=== PATIENT | male | born 1965 | race Caucasian/White ===

== ENCOUNTER → 2019-03-25 | Outpatient (CLI) | payer BC, MEDICARE ==
--- NOTE | 2019-03-25 09:17 | CT ---
EXAMINATION TYPE: CT brain wo/w con DATE OF EXAM: 03/25/2019 COMPARISON: 05/10/2015 HISTORY: 53-year-old male aneurysm. 364.10, G43.00, 345.90 TECHNIQUE: Examination was done in axial plane without intravenous contrast. Coronal and sagittal r econstructions performed. CT DLP: 2059.8 mGycm Automated exposure control for dose reduction was used. FINDINGS: Metal clip artifact along the left paramedian suprasellar region limits visualization of structures i n the immediate vicinity. There is evidence adjacent encephalomalacia along the floor of the left fro ntal lobe. Left frontotemporal craniotomy flap and eric hole along the right frontal region. Allowing for metal artifact, there is no evidence of acute intracranial hemorrhage, acute ischemic c hanges, mass, mass-effect, or extra-axial fluid collection. There is no effacement of cerebral sulci or basal subarachnoid cisterns. There is no hydrocephalus. There is no midline shift. Mcknight-white matter distinction is preserved. No enhancing intracranial lesions. Dural venous sinuses are patent. Along the visualized portions, no discrete aneurysm is seen. The suprasellar region is not well assessed due to artifact. Rightward nasal septal deviation. Trace mucosal thickening ethmoid air cells. Mastoid air is pneumati zed. Orbits and globes are intact. IMPRESSION: No acute intracranial abnormality seen. Prior left frontotemporal craniotomy flap with underlying ane urysm clipping in the left suprasellar region. Clip artifact limits the evaluation. Consider conventi onal angiography if concern for residual or recurrent [place] of [place] aneurysm.
== END ==
LOC: RADCTMAIN 07:16
PROVIDERS: ATTEND Nurse Practitioner Adult Health
DX: I73.9 Peripheral vascular disease, unspecified (principal); I69.359 Hemiplegia and hemiparesis following cerebral infarction affecting unspecified side
CPT/HCPCS: 70470; Q9967

== ENCOUNTER 2020-09-01 13:45 | Observation (INO) | payer OTHER, BC, MEDICARE ==
[2020-09-01] MEDS ORDERED: ASPIRIN 81 MG PO STA (14:01)
[2020-09-01] MEDS ORDERED: NITROGLYCERIN OINT 1 INCH/GM PACKET TOPICAL STA (14:01)
--- NOTE | 2020-09-01 14:05 | ED ---
General Adult HPI - General Chief complaint: Chest Pain Stated complaint: CHEST PAIN Time Seen by Provider: 09/01/20 13:45 Source: patient, RN notes reviewed, old records reviewed Mode of arrival: wheelchair Limitations: no limitations - History of Present Illness Initial comments: This is a 54-year-old male presents emergency Department with a past medical history significant for brain aneurysm back in 2004. Patient denies diabetes hypertension high cholesterol. Patient states he denies smoking. Patient comes in stating that his father at 32 a massive heart attack. Patient states that intermittent chest pain since Sunday on the right side of his chest radiates up into his right arm. Patient states she is also very short of breath and particularly with exertion. Patient denies any diaphoretic episodes. Patient denies any lightheadedness or dizziness. Patient denies any headache. Patient denies any numbness or weakness. Patient denies abdominal pain patient denies nausea vomiting or diarrhea. Patient denies any recent fever chills or cough. Patient denies any swelling to the legs or calf tenderness. - Related Data Home Medications Medication Instructions Recorded Confirmed HYDROcodone/APAP 7.5-325MG [[place] 1 tab PO DAILY PRN 09/01/20 09/01/20 7.5-325] Lacosamide [Vimpat] 100 mg PO BID 09/01/20 09/01/20 Morphine Sulfate [Morphine Sulfate 180 mg PO DAILY 09/01/20 09/01/20 ER] Naloxone (Mdv) [Narcan (Mdv)] 4 mg IM ONCE PRN 09/01/20 09/01/20 OXcarbazepine [Trileptal] 300 mg PO BID 09/01/20 09/01/20 Allergies Allergy/AdvReac Type Severity Reaction Status Date / Time No Known Allergies Allergy Verified 09/01/20 14:33 Review of Systems ROS Statement: Those systems with pertinent positive or pertinent negative responses have been documented in the HPI. ROS Other: All systems not noted in ROS Statement are negative. Past Medical History Past Medical History: CVA/TIA, Seizure Disorder Additional Past Medical History / Comment(s): migraines brain aneurysm History of Any Multi-Drug Resistant Organisms: None Reported Additional Past Surgical History / Comment(s): craniotomy Past Psychological History: No Psychological Hx Reported Smoking Status: Never smoker Past Alcohol Use History: None Reported Past Drug Use History: None Reported General Exam - General Exam Comments Initial Comments: GENERAL: Patient is well-developed and well-nourished. Patient is nontoxic and well- hydrated and is in moderate distress. ENT: Neck is soft and supple. No significant lymphadenopathy is noted. Oropharynx is clear. Moist mucous membranes. Neck has full range of motion without eliciting any pain. EYES: The sclera were anicteric and conjunctiva were pink and moist. Extraocular movements were intact and pupils were equal round and reactive to light. Eyelids were unremarkable. PULMONARY: Unlabored respirations. Good breath sounds bilaterally. No audible rales rhonchi or wheezing was noted. CARDIOVASCULAR: There is a regular rate and rhythm without any murmurs gallops or rubs. ABDOMEN: Soft and nontender with normal bowel sounds. SKIN: Skin is clear with no lesions or rashes and otherwise unremarkable. NEUROLOGIC: Patient is alert and oriented x3. Cranial nerves II through XII are grossly intact. Motor and sensory are also intact. Normal speech, volume and content. Symmetrical smile. MUSCULOSKELETAL: Normal extremities with adequate strength and full range of motion. LYMPHATICS: No significant lymphadenopathy is noted PSYCHIATRIC: Normal psychiatric evaluation. Limitations: no limitations Course Vital Signs 09/01/20 13:47 Temperature 97.9 F Pulse Rate 83 Respiratory 20 Rate Blood Pressure 153/90 O2 Sat by Pulse 99 Oximetry Medical Decision Making - Medical Decision Making EKG shows normal sinus rhythm at 85 bpm WI interval is 178 QRSs 86 QT interval 390 QTC is [address] segment elevation or depression. Chest x-ray shows no acute abnormality. - Lab Data Result diagrams: 09/01/20 14:12 Lab Results 09/01/20 09/01/20 Range/Units 14:12 14:12 WBC 6.7 (3.8-10.6) k/uL RBC 4.56 (4.30-5.90) m/uL Hgb 14.5 (13.0-17.5) gm/dL Hct 41.4 (39.0-53.0) % MCV 90.9 (80.0-100.0) fL MCH 31.8 (25.0-35.0) pg MCHC 35.0 (31.0-37.0) g/dL RDW 12.2 (11.5-15.5) % Plt Count 250 (150-450) k/uL MPV 7.5 Neutrophils % 75 % Lymphocytes % 15 % Monocytes % 5 % Eosinophils % 3 % Basophils % 1 % Neutrophils # 5.0 (1.3-7.7) k/uL Lymphocytes # 1.0 (1.0-4.8) k/uL Monocytes # 0.3 (0-1.0) k/uL Eosinophils # 0.2 (0-0.7) k/uL Basophils # 0.1 (0-0.2) k/uL PT 10.4 (9.0-12.0) sec INR 1.0 (<1.2) APTT 24.4 (22.0-30.0) sec Critical Care Time Critical Care Time: Yes Total Critical Care Time: 35 Disposition Clinical Impression: Unstable angina pectoris Disposition: ADMITTED IP TO THIS HOSP Referrals: [facility],Clinic [Primary Care Provider] - 1-2 days Time of Disposition: 14:48
--- NOTE | 2020-09-01 14:21 | XR ---
EXAMINATION TYPE: XR chest 2V DATE OF EXAM: 09/01/2020 COMPARISON: NONE HISTORY: Chest pain. TECHNIQUE: Frontal and lateral views of the chest are obtained. FINDINGS: There is mild chronic parenchymal changes bilaterally without suspicious focal air space o pacity, pleural effusion, or pneumothorax seen. The cardiac silhouette size is within normal limits. Overlying EKG leads. The osseous structures are intact. Right axillary calcified nodes or granuloma s suspected. IMPRESSION: No acute cardiopulmonary process.
[2020-09-01 14:26] LABS: Basophils # (A) 0.1 k/uL (0-0.2); Basophils % (A) 1 %; Eosinophils # (A) 0.2 k/uL (0-0.7); Eosinophils % (A) 3 %; HCT 41.4 % (39.0-53.0); HGB 14.5 gm/dL (13.0-17.5); Lymphocytes % (A) 15 %; MCH 31.8 pg (25.0-35.0); MCV 90.9 fL (80.0-100.0); Mean Platelet Volume 7.5; Monocytes # (A) 0.3 k/uL (0-1.0); Monocytes % (A) 5 %; Neutrophils % (A) 75 %; Platelet Count 250 k/uL (150-450); RBC 4.56 m/uL (4.30-5.90); RDW 12.2 % (11.5-15.5); WBC 6.7 k/uL (3.8-10.6)
[2020-09-01 14:40] LABS: Partial Thromboplastin Time 24.4 sec (22.0-30.0); Prothrombin Time 10.4 sec (9.0-12.0)
[2020-09-01] MEDS ORDERED: HEPARIN SODIUM 1,000 UN/ML (10ML VL) IV STA (14:49)
[2020-09-01] MEDS ORDERED: NITROGLYCERIN SL TABS 0.4 MG TAB SUBLINGUAL PRN (14:50)
[2020-09-01] MEDS ORDERED: HEPARIN SOD,PORK IN 0.45% NACL 25,000 UNIT in 0.45% NACL 1 250ML.BAG IV SCH (15:00)
[2020-09-01 15:17] LABS: ALT 23 U/L (4-49); AST 31 U/L (17-59); African American GFR (CKD) >90 (>60 ml/min/1.73 sqM); Albumin 4.6 g/dL (3.5-5.0); Alkaline Phosphatase 70 U/L (38-126); Anion Gap 9 mmol/L; Blood Urea Nitrogen 14 mg/dL (9-20); Calcium 9.1 mg/dL (8.4-10.2); Carbon Dioxide 25 mmol/L (22-30); Chloride 105 mmol/L (98-107); Glucose 102 mg/dL (74-99); Magnesium 1.9 mg/dL (1.6-2.3); Non-African American GFR(CKD) >90 (>60 ml/min/1.73 sqM); Potassium 4.3 mmol/L (3.5-5.1); Sodium 139 mmol/L (137-145); Total Bilirubin 0.5 mg/dL (0.2-1.3); Total Protein 7.1 g/dL (6.3-8.2)
[2020-09-01] MEDS ORDERED: HYDROcodone/APAP 7.5-325MG 1 EACH TAB PO PRN (16:19)
[2020-09-01] MEDS: LACOSAMIDE 50 MG TABLET PO SCH (19:27)
[2020-09-01] MEDS: MORPHINE SULFATE ER 60 MG TABLET PO SCH (19:29)
[2020-09-01] MEDS: OXcarbazepine 300 MG TAB PO SCH (19:30)
[2020-09-01] MEDS: NITROGLYCERIN OINT 1 INCH/GM PACKET TOPICAL SCH (20:15)
--- NOTE | 2020-09-01 22:13 | P.HPIM ---
History of Present Illness H&P Date: 09/01/20 Chief Complaint: Chest pain Patient is a 54-year-old male with a known history of CVA/TIA with ruptured aneurysm in 2005, seizure disorder and previous history of smoking presents to ER with the complaints of on and off chest pain since last Sunday. Pain is mainly in the retrosternal area and radiates to right shoulder and arm. Patient is having dull pain. Associate with nausea and shortness of breath. No episodes of vomiting. Denied any complaints of dizziness or lightheadedness. No diaphoresis. No leg swelling. Patient states that he does have some exertional shortness of breath recently. Patient states that he had stress test done about 2 years ago which was negative. Family history of coronary disease in his father who at age 37. Denies any cough or sputum production. No fever no chills. No recent travels or sick contact. EKG showed atrial fibrillation with rapid regular response. Chest x-ray showed no acute cardiopulmonary process Laboratory data showed troponin x2 - Magnesium 1.9 BUN 14 and creatinine 0.73 hemoglobin 14.5 and MCV 90.9 and WBC 6.9 platelets 253 Coronavirus PCR not detected. Review of Systems Constitutional: Patient denies any fever or chills . No generalized weakness or weight loss. Abdomen: Patient denied nausea vomiting and diarrhea and abdominal pain. Cardiovascular: Patient denies any chest pain or short of breath no palpitations. Respiratory: patient denied any cough or sputum production. No shortness of breath Neurologic: Patient denied any numbness or tingling headache. Musculoskeletal: Patient denies any complaints of joint swelling or deformity. Skin: Negative Psychiatric: Negative Endocrine: No heat or cold intolerance. No recent weight gain. Genitourinary: No dysuria or hematuria. All other 14 point ROS negative except the above Past Medical History Past Medical History: CVA/TIA, Seizure Disorder Additional Past Medical History / Comment(s): 2005 brain aneurysm with surgery, migraines and seizures since brain aneurys repair as well as balance and memory problems, past bouts of abdominal cramping/nausea and vomiting. History of Any Multi-Drug Resistant Organisms: None Reported Additional Past Surgical History / Comment(s): craniotomy for aneurysm repair, EGD, colonoscopy. Past Anesthesia/Blood Transfusion Reactions: No Reported Reaction Smoking Status: Former smoker - Past Family History Father Family Medical History: Diabetes Mellitus, Myocardial Infarction ([place]) Additional Family Medical History / Comment(s): Father of a massive [place] at the age of 32 yrs. Mother Family Medical History: Cancer Additional Family Medical History / Comment(s): Mother had lung cancer. She was a former smoker. Brother(s) Family Medical History: Diabetes Mellitus Medications and Allergies Home Medications Medication Instructions Recorded Confirmed Type HYDROcodone/APAP 7.5-325MG [[place] 1 tab PO DAILY PRN 09/01/20 09/01/20 History 7.5-325] Lacosamide [Vimpat] 100 mg PO BID 09/01/20 09/01/20 History Morphine Sulfate [Morphine Sulfate 180 mg PO DAILY 09/01/20 09/01/20 History ER] Naloxone (Mdv) [Narcan (Mdv)] 4 mg IM ONCE PRN 09/01/20 09/01/20 History OXcarbazepine [Trileptal] 300 mg PO BID 09/01/20 09/01/20 History Allergies Allergy/AdvReac Type Severity Reaction Status Date / Time No Known Allergies Allergy Verified 09/01/20 14:33 Physical Exam Vitals: Vital Signs Temp Pulse Resp BP Pulse Ox 09/01/20 16:02 84 18 134/82 99 09/01/20 15:50 72 18 111/78 97 09/01/20 13:47 97.9 F 83 20 153/90 99 Intake and Output 09/01/20 09/01/20 09/01/20 06:59 14:59 22:59 Other: Weight 92.986 kg 92.986 kg PHYSICAL EXAMINATION: Patient is lying in the bed comfortably, no acute distress, awake alert and orie nted.. HEENT: Normocephalic. Neck is supple. Pupils reactive. Nostrils clear. Oral cavity is moist. Ears reveal no drainage. Neck reveals no JVD, carotid bruits, or thyromegaly. CHEST EXAMINATION: Trachea is central. Symmetrical expansion. Lung rehman clear to auscultation and percussion. CARDIAC: Normal S1, S2 with no gallops. No murmurs ABDOMEN: Soft. Bowel sounds normal. No organomegaly. No abdominal bruits. Extremities: reveal no edema. No clubbing or cyanosis Neurologically awake, alert, oriented x3 with well-coordinated movements. No focal deficits noted Skin: No rash or skin lesions. Psychiatric: Coperative. Nonsuicidal Musculoskeletal: No joint swelling or deformity. Normal range of motion. Results CBC & Chem 7: 09/01/20 14:12 09/01/20 14:12 Labs: Abnormal Lab Results - Last 24 Hours (Table) 09/01/20 Range/Units 14:12 Glucose 102 H (74-99) mg/dL Thrombosis Risk Factor Assmnt - DVT/VTE Prophylaxis DVT/VTE Prophylaxis: Pharmacologic Prophylaxis ordered - Choose All That Apply Any of the Below Risk Factors Present?: Yes Each Factor Represents 1 point: Age 41-60 years, Obesity (BMI >25) Other Risk Factors: No Other congenital or acquired thrombophilia - If yes, enter type in comment: No Thrombosis Risk Factor Assessment Total Risk Factor Score: 2 Thrombosis Risk Factor Assessment Level: Low Risk Assessment and Plan Assessment: Chest pain possible unstable angina New onset atrial fibrillation with controlled ventricular rate. Family history of coronary artery disease Migraine headaches History of ruptured cerebral aneurysm and craniotomy in 2005 Seizure disorder Chronic pain GI and DVT prophylaxis Plan: Patient will be continued telemetry monitoring and was started on heparin drip. Monitor serial EKG and troponins. Patient was started on aspirin and follow-up lipid profile. Continue with home pain medications and antiplatelet medications. Cardiology was consulted and further recommendations based on the clinical course. Time with Patient: Greater than 30
[2020-09-02] MEDS: NITROGLYCERIN OINT 1 INCH/GM PACKET TOPICAL SCH ×2 (01:11→05:24)
[2020-09-02 02:41] LABS: Cholesterol 184 mg/dL (<200); HDL Cholesterol 50 mg/dL (40-60); LDL Cholesterol,Calculated 115 mg/dL (0-99); Triglycerides 96 mg/dL (<150)
[2020-09-02] MEDS ORDERED: ALPRAZolam 0.5 MG TAB PO PRN (08:24)
[2020-09-02] MEDS ORDERED: ATORVASTATIN 80 MG TAB PO STA (08:24)
[2020-09-02] MEDS ORDERED: ALPRAZolam 0.25 MG TAB PO PRN (08:24)
[2020-09-02] MEDS ORDERED: SODIUM CHLORIDE 0.9% 1,000 ML in EMPTY BAG 1 BAG IV ONE (08:24)
[2020-09-02] MEDS ORDERED: ASPIRIN 325 MG TAB PO STA (08:24)
[2020-09-02] MEDS ORDERED: NITROGLYCERIN SL TABS 0.4 MG TAB SUBLINGUAL PRN (08:24)
[2020-09-02] MEDS: LACOSAMIDE 50 MG TABLET PO SCH ×2 (08:33→20:25)
[2020-09-02] MEDS: OXcarbazepine 300 MG TAB PO SCH ×2 (08:35→21:02)
[2020-09-02] MEDS ORDERED: ASPIRIN 325 MG TAB PO SCH (09:00)
[2020-09-02] MEDS ORDERED: ASPIRIN 81 MG PO SCH (09:00)
[2020-09-02] MEDS ORDERED: MORPHINE SULFATE ER 60 MG TABLET PO SCH (09:00)
[2020-09-02] MEDS ORDERED: HEPARIN SODIUM,PORCINE 2,500 UNIT in SODIUM CHLORIDE 0.9% 250 ML IRRIGATION PRN (09:00)
[2020-09-02] MEDS ORDERED: HEPARIN SODIUM,PORCINE 10,000 UNIT in SODIUM CHLORIDE 0.9% 1,000 ML IRRIGATION PRN (09:00)
--- NOTE | 2020-09-02 10:04 | P.CRDCN ---
History of Present Illness Consult date: 09/02/20 History of present illness: HISTORY OF PRESENT ILLNESS: This is a 54-year-old male with a past medical history significant for CVA, brain aneurysm with clipping, and migraines. Patient used to follow in the office with Dr. Bradshaw but has not been seen in over 3 years. We have been asked to see the patient in consultation for chest pain. Patient examined at the bedside. Patient states he began having chest pain on Sunday. Patient states that pain feels like somebody hit him in the chest. He reports feeling shortness of breath with the chest pain as well. He reports feeling nauseated at times and breaking out in a cold sweat. Patient states initially the pain was only occurring with exertion but the last couple days the pain has also been occurring at rest. Patient presented to the emergency room and patient received Nitropaste which he states relieved the pain in about 20 minutes. Patient did have a negative Cardiolite stress test in 2017. He reports a family history of coronary artery disease and states his dad of a heart attack at the age of 32. EKG reveals sinus bradycardia with no signs of acute ischemia Chest xray negative for acute cardiopulmonary process Laboratory data: WBC 6.7. Hemoglobin 14.5. Platelet count 250. Sodium 139. Potassium 4.3. BUN 14. Creatinine 0.73. Magnesium 1.9. Troponin negative 3. Current home cardiac medications include none REVIEW OF SYSTEMS: At the time of my exam: CONSTITUTIONAL: Denies fever or chills. HEENT: Denies blurred vision, vision changes, or eye pain. Denies hemoptysis CARDIOVASCULAR: Denies chest pain. Denies orthopnea. Denies PND. Denies palpitations RESPIRATORY: Denies shortness of breath. GASTROINTESTINAL: Denies abdominal pain. Denies nausea or vomiting. HEMATOLOGIC: Denies bleeding disorders. GENITOURINARY: Denies any blood in urine. SKIN: Denies pruitis. Denies rash. PHYSICAL EXAM: VITAL SIGNS: Reviewed. GENERAL: Well-developed in no acute distress. HEENT: Head is normocephalic. Pupils are equal, round. Sclerae anicteric. Mucous membranes of the mouth are moist. Neck supple. No JVD or thyromegaly LUNGS: Respirations even and unlabored. Lungs essentially clear to auscultation bilaterally. HEART: Regular rate and rhythm. S1 and S2 heard. ABDOMEN: Soft. Nondistended. Nontender. EXTREMITIES: Normal range of motion. No clubbing or cyanosis. Peripheral pulses intact. No lower extremity edema NEUROLOGIC: Awake and alert. Oriented x 3. ASSESSMENT: Chest pain History of CVA History of brain aneurysm with clipping History of migraines since brain aneurysm PLAN: An acute coronary event has been ruled out Discontinue IV heparin Obtain 2D echo to assess cardiac structure and function Patient to undergo cardiac cath today with Dr. Reed Further recommendations pending patient course Nurse practitioner note has been reviewed by physician. Signing provider agrees with the documented findings, assessment, and plan of care. Past Medical History Past Medical History: CVA/TIA, Seizure Disorder Additional Past Medical History / Comment(s): 2005 brain aneurysm with surgery, migraines and seizures since brain aneurys repair as well as balance and memory problems, past bouts of abdominal cramping/nausea and vomiting. History of Any Multi-Drug Resistant Organisms: None Reported Additional Past Surgical History / Comment(s): craniotomy for aneurysm repair, EGD, colonoscopy. Past Anesthesia/Blood Transfusion Reactions: No Reported Reaction Smoking Status: Former smoker - Past Family History Father Family Medical History: Diabetes Mellitus, Myocardial Infarction ([place]) Additional Family Medical History / Comment(s): Father of a massive [place] at the age of 32 yrs. Mother Family Medical History: Cancer Additional Family Medical History / Comment(s): Mother had lung cancer. She was a former smoker. Brother(s) Family Medical History: Diabetes Mellitus Medications and Allergies Home Medications Medication Instructions Recorded Confirmed Type HYDROcodone/APAP 7.5-325MG [[place] 1 tab PO DAILY PRN 09/01/20 09/01/20 History 7.5-325] Lacosamide [Vimpat] 100 mg PO BID 09/01/20 09/01/20 History Morphine Sulfate [Morphine Sulfate 180 mg PO DAILY 09/01/20 09/01/20 History ER] Naloxone (Mdv) [Narcan (Mdv)] 4 mg IM ONCE PRN 09/01/20 09/01/20 History OXcarbazepine [Trileptal] 300 mg PO BID 09/01/20 09/01/20 History Allergies Allergy/AdvReac Type Severity Reaction Status Date / Time No Known Allergies Allergy Verified 09/01/20 14:33 Physical Exam Vitals: Vital Signs Temp Pulse Pulse Resp BP BP BP 09/02/20 07:00 97.6 F 57 L 16 101/63 09/02/20 02:00 97.4 F L 47 L 18 117/72 09/01/20 20:00 97.8 F 60 16 105/66 09/01/20 17:00 98.2 F 67 14 130/82 09/01/20 16:02 84 18 134/82 09/01/20 15:50 72 18 111/78 09/01/20 13:47 97.9 F 83 20 153/90 Pulse Ox 09/02/20 07:00 97 09/02/20 02:00 97 09/01/20 20:00 97 09/01/20 17:00 97 09/01/20 16:02 99 09/01/20 15:50 97 09/01/20 13:47 99 Intake and Output 09/01/20 09/02/20 09/02/20 22:59 06:59 14:59 Intake Total 400 79.6 Balance 400 79.6 Intake: Intake, IV Titration 79.6 Amount Heparin Sod,Pork in 0.45% 79.6 NaCl 25,000 unit In 0.45 % NaCl 1 250ml.bag @ 10.7 UNITS/KG/HR 9.95 mls/hr IV .Q24H [facility] Rx#: [id number] Oral 400 Other: Voiding Method Toilet Toilet Toilet # Voids 2 2 Weight 92.986 kg Results 09/01/20 14:12 09/01/20 14:12 Cardiac Enzymes 09/01/20 09/01/20 09/01/20 Range/Units 14:12 14:12 17:15 AST 31 (17-59) U/L Troponin I <0.012 <0.012 (0.000-0.034) ng/mL 09/01/20 Range/Units 20:49 AST (17-59) U/L Troponin I <0.012 (0.000-0.034) ng/mL Coagulation 09/01/20 09/01/20 09/02/20 Range/Units 14:12 20:49 07:28 PT 10.4 (9.0-12.0) sec APTT 24.4 46.3 H 51.4 H (22.0-30.0) sec Lipids 05/05/21 Range/Units 14:12 Triglycerides 96 (<150) mg/dL Cholesterol 184 (<200) mg/dL HDL Cholesterol 50 (40-60) mg/dL CBC 09/01/20 Range/Units 14:12 WBC 6.7 (3.8-10.6) k/uL RBC 4.56 (4.30-5.90) m/uL Hgb 14.5 (13.0-17.5) gm/dL Hct 41.4 (39.0-53.0) % Plt Count 250 (150-450) k/uL Comprehensive Metabolic Panel 09/01/20 Range/Units 14:12 Sodium 139 (137-145) mmol/L Potassium 4.3 (3.5-5.1) mmol/L Chloride 105 (98-107) mmol/L Carbon Dioxide 25 (22-30) mmol/L BUN 14 (9-20) mg/dL Creatinine 0.73 (0.66-1.25) mg/dL Glucose 102 H (74-99) mg/dL Calcium 9.1 (8.4-10.2) mg/dL AST 31 (17-59) U/L ALT 23 (4-49) U/L Alkaline Phosphatase 70 (38-126) U/L Total Protein 7.1 (6.3-8.2) g/dL Albumin 4.6 (3.5-5.0) g/dL Current Medications Generic Name Dose Route Start Last Admin Trade Name Freq PRN Reason Stop Dose Admin Hydrocodone Bitart/Acetaminophen 1 each 09/01/20 16:19 09/02/20 02:17 Hydrocodone/Apap 7.5-325mg 1 Each Tab PO 1 each DAILY PRN Administration Pain Alprazolam 0.25 mg 09/02/20 08:24 Alprazolam 0.25 Mg Tab PO Q6HR PRN Mild Anxiety Alprazolam 0.5 mg 09/02/20 08:24 Alprazolam 0.5 Mg Tab PO Q6HR PRN Moderate Anxiety Aspirin 81 mg 09/03/20 09:00 Aspirin 81 Mg PO DAILY ASHLIE Sodium Chloride 1,000 ml/ IV 1,000 mls @ 92.986 mls/hr 09/02/20 08:24 09/02/20 08:37 Solution IV 09/02/20 19:09 92.986 mls/hr .[id number] ONE Administration 1 ML/KG/HR Heparin Sodium (Porcine) 10, 1,001 mls @ 999 mls/hr 09/02/20 09:00 000 unit/ Sodium Chloride IRRIGATION 09/02/20 23:00 ONCE PRN INTRA-OP Heparin Sodium (Porcine) 2,500 250.5 mls @ 250 mls/hr 09/02/20 09:00 unit/ Sodium Chloride IRRIGATION 09/02/20 23:00 ONCE PRN INTRA-OP Lacosamide 100 mg 09/01/20 21:00 09/02/20 08:33 Lacosamide 50 Mg Tablet PO 100 mg BID ASHLIE Administration Morphine Sulfate 180 mg 09/01/20 21:00 09/01/20 19:29 Morphine Sulfate Er 60 Mg Tablet PO 180 mg HS ASHLIE Administration Nitroglycerin 0.4 mg 09/01/20 14:50 Nitroglycerin Sl Tabs 0.4 Mg Tab SUBLINGUAL Q5M PRN Chest Pain Nitroglycerin 0.4 mg 09/02/20 08:24 Nitroglycerin Sl Tabs 0.4 Mg Tab SUBLINGUAL Q5M PRN Chest Pain Oxcarbazepine 300 mg 09/01/20 21:00 09/02/20 08:35 Oxcarbazepine 300 Mg Tab PO 300 mg BID ASHLIE Administration Intake and Output 09/01/20 09/02/20 09/02/20 22:59 06:59 14:59 Intake Total 400 79.6 Balance 400 79.6 Intake: Intake, IV Titration 79.6 Amount Heparin Sod,Pork in 0.45% 79.6 NaCl 25,000 unit In 0.45 % NaCl 1 250ml.bag @ 10.7 UNITS/KG/HR 9.95 mls/hr IV .Q24H ASHLIE Rx#: [id number] Oral 400 Other: Voiding Method Toilet Toilet Toilet # Voids 2 2 Weight 92.986 kg 09/01/20 14:12 09/01/20 14:12
[2020-09-02 10:06] LABS: Glucose,Whole Blood 103 mg/dL (75-99)
[2020-09-02] MEDS ORDERED: LIDOCAINE 1% INJ 10MG/ML (20 ML MDV) ONE (10:57)
[2020-09-02] MEDS ORDERED: HEPARIN SODIUM 1,000 UN/ML (10ML VL) ONE (10:58)
[2020-09-02] MEDS ORDERED: VERAPAMIL 2.5 MG/ML 2 ML AMP ONE (10:58)
[2020-09-02] MEDS ORDERED: fentaNYL (PF) 50 MCG/ML 2 ML AMP ONE (10:58)
[2020-09-02] MEDS ORDERED: IV FLUID CONTINUATION 600 ML IV ONE (11:04)
[2020-09-02] MEDS ORDERED: MIDAZOLAM 2 MG/2 ML VIAL IVP ONE (11:10)
[2020-09-02] MEDS ORDERED: fentaNYL (PF) 50 MCG/ML 2 ML AMP IVP ONE (11:10)
[2020-09-02] MEDS ORDERED: LIDOCAINE 1% INJ 10MG/ML (20 ML MDV) SQ ONE (11:12)
[2020-09-02] MEDS ORDERED: VERAPAMIL SYRINGE (5 MG/10 ML) INTRAARTER ONE (11:14)
[2020-09-02] MEDS ORDERED: HEPARIN SODIUM 1,000 UN/ML (10ML VL) IV ONE (11:16)
[2020-09-02] MEDS ORDERED: IOPAMIDOL-370 125ML BTL INJ ONE (11:22)
--- NOTE | 2020-09-02 11:31 | ECHOF ---
Referral Reason:LV function, chest pain MEASUREMENTS -------- HEIGHT: 180.3 cm WEIGHT: 93.0 kg BP: 101/63 IVSd: 1.0 cm (0.6 - 1.1) LVIDd: 4.3 cm (3.9 - 5.3) LVPWd: 1.1 cm (0.6 - 1.1) IVSs: 1.6 cm LVIDs: 2.5 cm LVPWs: 1.8 cm LAESV Index (A-L): 21.01 ml/m Ao Diam: 3.9 cm (2.0 - 3.7) AV Cusp: 2.2 cm (1.5 - 2.6) LA Diam: 3.1 cm (2.7 - 3.8) MV EXCURSION: 21.518 mm (> 18.000) MV EF SLOPE: 134 mm/s (70 - 150) EPSS: 0.5 cm MV E Henri: 0.84 m/s MV DecT: 147 ms MV A Henri: 0.76 m/s MV E/A Ratio: 1.10 RAP: 5.00 mmHg RVSP: 13.89 mmHg FINDINGS -------- This was a technically good study. The left ventricular size is normal. Left ventricular wall thickness is normal. Overall left vent ricular systolic function is normal with, an EF between 55 - 60 %. The diastolic filling pattern is normal for the age of the patient 7.49. The right ventricle is normal in size. The left atrial size is normal. Normal LA size by volume 22+/-6 ml/m2. The right atrial size is normal. The aortic valve is trileaflet and appears structurally normal. The mitral valve is normal. Mild mitral regurgitation is present. The tricuspid valve appears structurally normal. Mild tricuspid regurgitation present. Right vent ricular systolic pressure is normal at < 35 mmHg. There is no pulmonic regurgitation present. The aortic root size is normal. Normal inferior vena cava with normal inspiratory collapse consistent with estimated right atrial pre ssure of 5 mmHg. There is no pericardial effusion. CONCLUSIONS -------- 1. The left ventricular size is normal. 2. Left ventricular wall thickness is normal. 3. Overall left ventricular systolic function is normal with, an EF between 55 - 60 %. 4. The diastolic filling pattern is normal for the age of the patient 7.49 5. Mild mitral regurgitation is present. 6. Mild tricuspid regurgitation present. 7. There is no pericardial effusion. BAND SAW MARKER: Maty Almonte RDCS
[2020-09-02] MEDS ORDERED: RX INFO: IV CONTRAST WAS GIVEN 1 EACH MISC MISCELLANE PRN (12:53)
--- NOTE | 2020-09-02 12:53 | P.CARDCATH ---
Description of Procedure: PROCEDURES PERFORMED: Left heart catheterization, bilateral coronary angiography INDICATION: Unstable angina, chest pain HISTORY: He is a pleasant 54-year-old male with worsening chest pain or the prior 6 days which mainly occurs with exertion is improved with rest as well as improved with nitroglycerin associated with some diaphoresis. Secondary to symptoms concerning for angina, heart catheterization was recommended. CONSENT:I have discussed the risks, benefits and alternative therapies for the above-mentioned procedure and for both sedation/analgesia as well as necessary blood product administration, if indicated, as they pertain to this patient. The patient has indicated understanding and acceptance of the risks and procedures discussed. PROCEDURE: After the risks, benefits and alternatives of the above mentioned procedure explained in detail with the patient, informed consent was obtained. Patient was taken to the catheterization lab and prepped and draped in usual fashion. 1% lidocaine was used to anesthetize the right radial artery. A 6- Welsh sheath was placed in the right radial artery using modified Seldinger technique. Left coronary angiography was performed with a 5-Welsh JL 3.5 catheter and right coronary angiography was performed with a 5-Welsh JR5 catheter in various views. A 5-Welsh FR5 catheter was inserted into the left ventricle and pressure measurements were obtained. The right radial sheath was removed and a TR band was placed with hemostasis achieved. The patient tolerated the procedure well. Patient was transported back to the post catheterization holding area in stable condition. Conscious Sedation: Patient was monitored under the direct supervision of vision of myself for conscious sedation using Versed and fentanyl for a total duration of 11 minutes HEMODYNAMICS: Ao: 142/72 LV: 138/3 Jb LVEDP 18 SELECTIVE CORONARY ARTERIOGRAPHY: LEFT MAIN: The left main is a large caliber vessel which bifurcates into the LAD and circumflex. There is no significant stenosis. LEFT ANTERIOR DESCENDING CORONARY ARTERY: LAD is a large caliber vessel which wraps around to the apex. There is no significant stenosis. LEFT CIRCUMFLEX CORONARY ARTERY: Left circumflex is a large caliber vessel without significant stenosis. It supplies the PDA and PLV and is the dominant vessel. RIGHT CORONARY ARTERY: The right coronary artery is a small caliber vessel which gives off an RV branch and is nondominant. There is no significant stenosis. FINAL IMPRESSION: 1. Normal coronary arteries as described above. PLAN: 1. Aggressive risk factor modification per most recent ACC/AHA guidelines. 2. Follow-up in the office in 1-2 weeks.
--- NOTE | 2020-09-02 16:18 | P.PN ---
Subjective Progress Note Date: 09/02/20 Patient is a 54-year-old male with a known history of CVA/TIA with ruptured aneurysm in 2005, seizure disorder and previous history of smoking presents to ER with the complaints of on and off chest pain since last Sunday. Pain is mainly in the retrosternal area and radiates to right shoulder and arm. Patient is having dull pain. Associate with nausea and shortness of breath. No episodes of vomiting. Denied any complaints of dizziness or lightheadedness. No diaphoresis. No leg swelling. Patient states that he does have some exertional shortness of breath recently. Patient states that he had stress test done about 2 years ago which was negative. Family history of coronary disease in his father who at age 37. Denies any cough or sputum production. No fever no chills. No recent travels or sick contact. EKG showed atrial fibrillation with rapid regular response. Chest x-ray showed no acute cardiopulmonary process Laboratory data showed troponin x2 - Magnesium 1.9 BUN 14 and creatinine 0.73 hemoglobin 14.5 and MCV 90.9 and WBC 6.9 platelets 253 Coronavirus PCR not detected. 09/02/2020 Patient is seen and evaluated in follow-up with no acute overnight issues. Patient continues to have some mild chest discomfort but states it has slightly improved. Patient remains nothing by mouth as he is undergoing cardiac catheterization today with cardiology and will await report. Further recommendations to follow depending on the clinical course of the patient. Possible discharge in 24 hours. Objective - Vital Signs Vital signs: Vital Signs Temp 97.6 F 09/02/20 07:00 Pulse 57 L 09/02/20 07:00 Resp 16 09/02/20 07:00 BP 101/63 09/02/20 07:00 Pulse Ox 97 09/02/20 07:00 Intake & Output 09/01/20 09/02/20 09/02/20 18:59 06:59 18:59 Intake Total 400 79.6 Balance 400 79.6 Weight 92.986 kg Intake: Intake, IV Titration 79.6 Amount Heparin Sod,Pork in 0.45% 79.6 NaCl 25,000 unit In 0.45 % NaCl 1 250ml.bag @ 10.7 UNITS/KG/HR 9.95 mls/hr IV .Q24H [facility] Rx#: [id number] Oral 400 Other: Voiding Method Toilet Toilet # Voids 2 - Exam Patient is lying in the bed comfortably, no acute distress, awake alert and oriented.. HEENT: Normocephalic. Neck is supple. Pupils reactive. Nostrils clear. Oral cavity is moist. Ears reveal no drainage. Neck reveals no JVD, carotid bruits, or thyromegaly. CHEST EXAMINATION: Trachea is central. Symmetrical expansion. Lung rehman clear to auscultation and percussion. CARDIAC: Normal S1, S2 with no gallops. No murmurs ABDOMEN: Soft. Bowel sounds normal. No organomegaly. No abdominal bruits. Extremities: reveal no edema. No clubbing or cyanosis Neurologically awake, alert, oriented x3 with well-coordinated movements. No focal deficits noted Skin: No rash or skin lesions. Psychiatric: Cooperative. Non-suicidal Musculoskeletal: No joint swelling or deformity. Normal range of motion. - Labs CBC & Chem 7: 09/01/20 14:12 09/01/20 14:12 Labs: Abnormal Lab Results - Last 24 Hours (Table) 09/01/20 09/01/20 09/01/20 Range/Units 14:12 14:12 20:49 APTT 46.3 H (22.0-30.0) sec Glucose 102 H (74-99) mg/dL LDL Cholesterol, Calc 115 H (0-99) mg/dL 09/02/20 Range/Units 07:28 APTT 51.4 H (22.0-30.0) sec Glucose (74-99) mg/dL LDL Cholesterol, Calc (0-99) mg/dL Assessment and Plan Assessment: Chest pain possible unstable angina New onset atrial fibrillation with controlled ventricular rate. Family history of coronary artery disease Migraine headaches History of ruptured cerebral aneurysm and craniotomy in 2005 Seizure disorder Chronic pain GI and DVT prophylaxis Plan: Patient will be continued telemetry monitoring and undergoing cardiac cath eterization today and heparin drip was discontinued. Patient was started on aspirin and follow-up lipid profile. Continue with home pain medications and antiplatelet medications. Cardiology following and will await catheterization report. Further recommendations based on the clinical course. Possible discharge in 24 hours.
[2020-09-02] MEDS ORDERED: predniSONE 20 MG TAB PO ONE (19:00)
[2020-09-02] MEDS: MORPHINE SULFATE ER 60 MG TABLET PO SCH (20:25)
[2020-09-03 02:39] VITALS: RESP 18
[2020-09-03 08:16] VITALS: BP 106/60; PULSE 69; TEMP 97.5
[2020-09-03] MEDS ORDERED: ASPIRIN 81 MG PO SCH (09:00)
[2020-09-03] MEDS: LACOSAMIDE 50 MG TABLET PO SCH (09:02)
[2020-09-03] MEDS: OXcarbazepine 300 MG TAB PO SCH (09:03)
--- NOTE | 2020-09-03 12:16 | P.PN ---
Subjective Progress Note Date: 09/03/20 HISTORY OF PRESENT ILLNESS: This is a 54-year-old male with a past medical history significant for CVA, brain aneurysm with clipping, and migraines. Patient used to follow in the off ice with Dr. Bradshaw but has not been seen in over 3 years. We have been asked to see the patient in consultation for chest pain. Patient examined at the bedside. Patient states he began having chest pain on Sunday. Patient states that pain feels like somebody hit him in the chest. He reports feeling shortness of breath with the chest pain as well. He reports feeling nauseated at times and breaking out in a cold sweat. Patient states initially the pain was only occurring with exertion but the last couple days the pain has also been occurring at rest. Patient presented to the emergency room and patient received Nitropaste which he states relieved the pain in about 20 minutes. Patient did have a negative Cardiolite stress test in 2017. He reports a family history of coronary artery disease and states his dad of a heart attack at the age of 32. EKG reveals sinus bradycardia with no signs of acute ischemia Chest xray negative for acute cardiopulmonary process Laboratory data: WBC 6.7. Hemoglobin 14.5. Platelet count 250. Sodium 139. Potassium 4.3. BUN 14. Creatinine 0.73. Magnesium 1.9. Troponin negative 3. Current home cardiac medications include none 09/03/2020 Patient underwent cardiac catheterization yesterday revealing normal coronary arteries. Patient examined this morning at the bedside. He denies any further episodes of chest pain. He states he was placed on steroids yesterday which helped his pain. Vital signs are stable. PHYSICAL EXAM: VITAL SIGNS: Reviewed. GENERAL: Well-developed in no acute distress. HEENT: Head is normocephalic. Pupils are equal, round. Sclerae anicteric. Mucous membranes of the mouth are moist. Neck supple. No JVD or thyromegaly LUNGS: Respirations even and unlabored. Lungs essentially clear to auscultation bilaterally. HEART: Regular rate and rhythm. S1 and S2 heard. ABDOMEN: Soft. Nondistended. Nontender. EXTREMITIES: Normal range of motion. No clubbing or cyanosis. Peripheral pulses intact. No lower extremity edema NEUROLOGIC: Awake and alert. Oriented x 3. ASSESSMENT: Chest pain History of CVA History of brain aneurysm with clipping History of migraines since brain aneurysm PLAN: Patient is stable for discharge home today from a cardiac standpoint He is to follow up outpatient with Dr. Reed Nurse practitioner note has been reviewed by physician. Signing provider agrees with the documented findings, assessment, and plan of care. Objective - Vital Signs Vital signs: Vital Signs Temp 97.5 F L 09/03/20 07:00 Pulse 69 09/03/20 07:00 Resp 18 09/03/20 07:00 BP 106/60 09/03/20 07:00 Pulse Ox 95 09/03/20 07:00 Intake & Output 09/02/20 09/03/20 09/03/20 18:59 06:59 18:59 Intake Total 350 240 240 Balance 350 240 240 Intake: IV 50 Oral 300 240 240 Other: Voiding Method Toilet Toilet Toilet # Voids 2 - Labs CBC & Chem 7: 09/01/20 14:12 09/01/20 14:12
--- NOTE | 2020-09-03 13:43 | P.DS ---
Providers Date of admission: 09/01/20 15:22 Expected date of discharge: 09/03/20 Attending physician: Bailey Prescott Consults: 09/01/20 14:50 Consult Physician Urgent Consulting Provider: [facility] Consult Reason/Comments: Unstable angina Do you want consulting provider notified?: Yes Primary care physician: [facility] Hospital Course: Final diagnosis Chest pain possible unstable angina New onset atrial fibrillation with controlled ventricular rate. Possible chest wall pneumonitis will have patient follow-up outpatient with pulmonary Family history of coronary artery disease Migraine headaches History of ruptured cerebral aneurysm and craniotomy in 2005 Seizure disorder Chronic pain GI and DVT prophylaxis Discharge disposition Patient is being discharged in a stable condition with guarded prognosis to home. Patient will follow-up with Dr. Watts the [facility] in the outpatient setting upon discharge. Patient is to continue with prednisone 40 mg daily for the next 4 days. Patient instructed to follow-up with cardiology outpatient along with pulmonary outpatient. Total time taken is greater than 35 minutes. Hospital course Patient is a 54-year-old male with a known history of CVA/TIA with ruptured aneurysm in 2005, seizure disorder and previous history of smoking presents to ER with the complaints of on and off chest pain since last Sunday. Pain is mainly in the retrosternal area and radiates to right shoulder and arm. Patient is having dull pain. Associate with nausea and shortness of breath. No episodes of vomiting. Denied any complaints of dizziness or lightheadedness. No diaphoresis. No leg swelling. Patient states that he does have some exertional shortness of breath recently. Patient states that he had stress test done about 2 years ago which was negative. Family history of coronary disease in his father who at age 37. Denies any cough or sputum production. No fever no chills. No recent travels or sick contact. EKG showed atrial fibrillation with rapid regular response. Chest x-ray showed no acute cardiopulmonary process Laboratory data showed troponin x2 - Magnesium 1.9 BUN 14 and creatinine 0.73 hemoglobin 14.5 and MCV 90.9 and WBC 6.9 platelets 253 Coronavirus PCR not detected. 09/02/2020 Patient is seen and evaluated in follow-up with no acute overnight issues. Patient continues to have some mild chest discomfort but states it has slightly improved. Patient remains nothing by mouth as he is undergoing cardiac catheterization today with cardiology and will await report. Further recommendations to follow depending on the clinical course of the patient. Possible discharge in 24 hours. 09/03/2020 Patient is seen and evaluated in follow-up stating that he feels the prednisone did help and will continue with a four-day course. Patient instructed to follow-up with primary care provider along with cardiology and pulmonary outpatient upon discharge. Patient underwent cardiac catheterization yesterday which was clear and no stenting was done. Again patient will follow-up with cardiology outpatient. Patient to continue with daily baby aspirin. Currently no reports of chest pain, shortness of breath, or palpitations. Patient is afebrile. No reports of nausea or vomiting and patient is tolerating diet. Patient will be discharged home today. On exam vital signs are stable. Cardio S1, S2 are muffled. Respiratory system shows diminished breath sounds at the bases with no wheezing or rhonchi noted. Abdomen is soft and nontender. Nervous system shows no focal deficits. Please refer to medication reconciliation sheet for a list of medications. Patient Condition at Discharge: Stable Plan - Discharge Summary Discharge Rx Participant: No New Discharge Prescriptions: New Aspirin 81 mg PO DAILY 30 Days #30 chew predniSONE 40 mg PO DAILY 4 Days #16 tab Continue Naloxone (Mdv) [Narcan (Mdv)] 4 mg IM ONCE PRN PRN Reason: OVERDOSE Lacosamide [Vimpat] 100 mg PO BID OXcarbazepine [Trileptal] 300 mg PO BID Morphine Sulfate [Morphine Sulfate ER] 180 mg PO DAILY HYDROcodone/APAP 7.5-325MG [[place] 7.5-325] 1 tab PO DAILY PRN PRN Reason: Pain Discharge Medication List HYDROcodone/APAP 7.5-325MG [[place] 7.5-325] 1 tab PO DAILY PRN 09/01/20 [History] Lacosamide [Vimpat] 100 mg PO BID 09/01/20 [History] Morphine Sulfate [Morphine Sulfate ER] 180 mg PO DAILY 09/01/20 [History] Naloxone (Mdv) [Narcan (Mdv)] 4 mg IM ONCE PRN 09/01/20 [History] OXcarbazepine [Trileptal] 300 mg PO BID 09/01/20 [History] Aspirin 81 mg PO DAILY 30 Days #30 chew 09/03/20 [Rx] predniSONE 40 mg PO DAILY 4 Days #16 tab 09/03/20 [Rx] Follow up Appointment(s)/Referral(s): Temo Reed DO [STAFF PHYSICIAN] - 2 Weeks Sage Christianson MD [STAFF PHYSICIAN] - 2 Weeks [facility] [Primary Care Provider] - 1-2 days Patient Instructions/Handouts: Angina (DC) Activity/Diet/Wound Care/Special Instructions: Activity Limited until follow-up Follow-up with primary care provider upon discharge Follow-up cardiology outpatient Follow up with pulmonary outpatient for further evaluation Continue current diet Continue with baby aspirin daily Continue with prednisone as directed Discharge Disposition: HOME SELF-CARE
== END 2020-09-03 12:09 | disposition home or self-care (01) ==
LOC: EC 13:45 → 6NMEDSUR 15:22
PROVIDERS: ADMIT Internal Medicine; ATTEND Internal Medicine
DX: R07.89 Other chest pain (principal); R06.02 Shortness of breath; R11.0 Nausea; R41.3 Other amnesia; I48.91 Unspecified atrial fibrillation; G43.909 Migraine, unspecified, not intractable, without status migrainosus; G40.909 Epilepsy, unspecified, not intractable, without status epilepticus; G89.29 Other chronic pain; F41.9 Anxiety disorder, unspecified; E66.9 Obesity, unspecified; Z68.27 Body mass index [BMI] 27.0-27.9, adult; Z86.79 Personal history of other diseases of the circulatory system; Z86.73 Personal history of transient ischemic attack (TIA), and cerebral infarction without residual deficits; Z87.891 Personal history of nicotine dependence; Z20.822 Contact with and (suspected) exposure to COVID-19; Z79.899 Other long term (current) drug therapy; Z82.49 Family history of ischemic heart disease and other diseases of the circulatory system; Z83.3 Family history of diabetes mellitus; Z80.1 Family history of malignant neoplasm of trachea, bronchus and lung
CPT/HCPCS: 96366 ×2; 93005 ×2; 96376; 96365; 99291; 36415; 93306; 93458; 80061; 80053; 83735; 84484; 85025; 85610; 85730 ×2; 87636; 71046; G0378 ×3; C1894; C1769; J2250; J2001; J3010; J1644 ×3; J7512; Q9967

== ENCOUNTER → 2024-04-08 | Outpatient (CLI) | payer BC, MEDICARE ==
--- NOTE | 2024-04-08 10:11 | CT ---
EXAMINATION TYPE: CT cervical spine wo con CT DLP: 612 mGycm, Automated exposure control for dose reduction was used. DATE OF EXAM: 04/08/2024 10:01 AM COMPARISON: CT brain 03/25/2019. CLINICAL INDICATION:Male, 58 years old with history of M50.30 CERVICAL DISC DEGENERATION; PHH, neck p ain, cervical disc degeneration TECHNIQUE: Axial CT images from the skull base to the inferior aspect of T2 we obtained without intra venous contrast. Coronal and sagittal reformatted images were also reviewed. FINDINGS: Fracture: None. Osseous structures: Multilevel degenerative disc disease changes with disc space narrowing with endpl ate sclerosis and osteophytosis . Partial visualization of left craniotomy changes. Vertebral alignment: Within normal limits. Spinal canal/Neural Foramina: No significant central canal stenosis at C2-C3. No neuroforaminal stenosis. Broad-based disc bulge at C3-C4 without significant effacement of the anterior thecal sac. No neurofo raminal stenosis. Central disc protrusion with mild effacement of the anterior thecal sac at C4-C5. No neural foraminal stenosis. Posterior disc osteophyte complex at C5-C6 with mild effacement of the anterior thecal sac. Uncoverte bral joint hypertrophy with mild to moderate right neural foraminal stenosis. The left neural foramen is patent. Broad-based disc bulge at C6-C7 with mild effacement of the anterior thecal sac. Uncovertebral joint hypertrophy with mild bilateral neural foraminal stenosis. No significant central canal or neural foraminal stenosis at C7-T1. Neck soft tissues: Prevertebral soft tissues are within normal limits. Other: The airway is patent. Minimal biapical pleural parenchymal scarring. Minimal biapical parasept al emphysematous change. Postsurgical changes from aneurysm treatment with metallic clips identified within the suprasellar region. IMPRESSION: 1. No evidence of cervical spine fracture. 2. Mild multilevel degenerative disc disease and uncovertebral joint hypertrophy as described above. [facility], , 04/08/2024 10:08 AM
== END | disposition home or self-care (01) ==
LOC: RADCTMAIN 09:41
PROVIDERS: ATTEND Psychiatry & Neurology Neurology
DX: M50.10 Cervical disc disorder with radiculopathy, unspecified cervical region (principal); M48.02 Spinal stenosis, cervical region
CPT/HCPCS: 72125